=== PATIENT | male | born 1985 | race Caucasian/White ===

== ENCOUNTER 2023-03-28 13:29 | Emergency (ER) | payer MEDICAID ==
[~2023-03-28] VITALS: Ht 180.3 cm; Wt 93.4 kg
[2023-03-28 13:38] VITALS: BP 142/81
== END 2023-03-28 14:27 | disposition home or self-care (01) ==
LOC: ER 13:29
DX: R21 Rash and other nonspecific skin eruption (principal)
CPT/HCPCS: 82962; 99281; 99282